=== PATIENT | male | born 2000 | race African-American/Black ===

== ENCOUNTER 2022-12-22 12:01 | Emergency (ER) | payer MEDICAID ==
[~2022-12-22] VITALS: Ht 188 cm; Wt 79.5 kg
[2022-12-22 12:13] VITALS: TEMP 98.2
[2022-12-22 12:40] VITALS: BP 125/54; PULSE 64; RESP 18
== END 2022-12-22 14:36 | disposition home or self-care (01) ==
LOC: EMS 12:03
DX: M25.562 Pain in left knee (principal)
CPT/HCPCS: 99281; Z7502